=== PATIENT | female | born 1940 | race Caucasian/White ===

== ENCOUNTER 2020-09-13 15:03 | Inpatient (IN) | payer OTHER, MEDICAID, SELFPAY ==
[~2020-09-13] VITALS: Ht 144.8 cm; Wt 96.6 kg
[2020-09-13 15:05] VITALS: BP_SYST 141
--- NOTE | 2020-09-13 15:05 | NUR ---
Patient to ER bed 5 to gown for evaluation. Side rails up.
--- NOTE | 2020-09-13 15:05 | NUR ---
Arm sling applied to R upper extremity to support elbow injury.
--- NOTE | 2020-09-13 15:10 | NUR ---
ER Dr. Persaud at bedside examining patient.
--- NOTE | 2020-09-13 15:20 | NUR ---
Patient AAO x 4 BIB BLS with c/o 6/10 R elbow pain s/p ground level slip and fall outside apartment. Denies pain to other parts of body. Skin clean, dry, and intact. Patient reports being on blood thinners, but patient is unable to recall name of medication. Even chest rise and fall with respirations. Will continue to monitor.
[2020-09-13] MEDS ORDERED: LIP10 PO (15:31)
[2020-09-13] MEDS ORDERED: ESOM40CA PO (15:31)
[2020-09-13] MEDS ORDERED: CLOP75TA32 PO (15:31)
[2020-09-13] MEDS ORDERED: AMLO5TAB4 PO (15:31)
--- NOTE | 2020-09-13 15:38 | NUR ---
cardiac cath technologist at bedside for portable R elbow xray.
[2020-09-13] MEDS ORDERED: MORPHINE 2 MG/ML INJ. SYRINGE IVP ONE (16:00)
[2020-09-13] MEDS ORDERED: ONDANSETRON HCL 4 MG/2 ML VIAL IVP ONE (16:00)
--- NOTE | 2020-09-13 16:01 | NUR ---
rapid covid swab collected and sent to the lab
--- NOTE | 2020-09-13 16:02 | NUR ---
Medication reconciliation completed with information provided by pt. Any prior medication reconciliation on file was reviewed and corrected.
--- NOTE | 2020-09-13 16:42 | NUR ---
# 24 gauge angiocath placed to LEFT HAND. Use of asceptic technique. Opsite placed over site. Blood return noted. Blood for lab drawn from site. Flushed with 10 cc of normal saline. No evidence of infiltration noted. Patient tolerated well.
--- NOTE | 2020-09-13 16:42 | NUR ---
EKG GIVEN TO
[2020-09-13] MEDS ORDERED: DEXTROSE 50% JECT 50 ML DISP.SYRIN IVP PRN (16:45)
[2020-09-13] MEDS ORDERED: NALOXONE HCL 0.4 MG/ML AMP (NARCAN) IVP PRN ×2 (16:45)
[2020-09-13] MEDS ORDERED: INSULIN REGULAR, HUMAN 100 UNITS/ML, 10 ML VIAL (humuLIN R) SUBCUT PRN (16:45)
[2020-09-13] MEDS ORDERED: cloNIDine HCL 0.1 MG TABLET PO PRN (17:00)
--- NOTE | 2020-09-13 17:00 | NUR ---
LONG ARM splint applied to RUE. + pulse noted. Capillary refill <3 seconds. Patient has ability to move non-splinted digits. Has sensation present to affected site. Skin color within normal limits. Applied for pain management control.
--- NOTE | 2020-09-13 17:04 | NUR ---
ophthalmic medical technologist at bedside for portable chest and R forearm xrays.
[2020-09-13 17:10] LABS: BASOPHILS # (AUTO) 0.1 K/uL (0.0-0.2); BASOPHILS % (AUTO) 0.5 % (0.0-2.0); EOSINOPHILS # (AUTO) 0.1 K/uL (0.0-0.4); EOSINOPHILS % (AUTO) 0.3 % (0.0-4.0); HEMATOCRIT 41.5 % (36-48); HEMOGLOBIN 13.1 g/dL (12.0-16.0); LYMPHOCYTES # (AUTO) 2.3 K/uL (1.0-5.5); LYMPHOCYTES % (AUTO) 11.8 % (20.5-51.5); MEAN CORPUSCULAR HEMOGLOBIN 27 pg (27-31); MEAN CORPUSCULAR HGB CONC 32 % (32-36); MEAN CORPUSCULAR VOLUME 85 fL (79.0-98.0); MONOCYTES # (AUTO) 0.9 K/uL (0.0-1.0); MONOCYTES % (AUTO) 4.9 % (1.7-9.3); NEUTROPHILS % (AUTO) 82.5 % (40.0-70.0); PLATELET COUNT (AUTO) 346 K/uL (130-430); RED BLOOD CELL COUNT(AUTO) 4.91 MIL/uL (4.2-6.2); RED CELL DISTRIBUTION WIDTH 16.8 % (9.0-15.0); WHITE BLOOD COUNT (AUTO) 19.4 K/uL (4.8-10.8)
--- NOTE | 2020-09-13 17:10 | NUR ---
Per patient, last PO intake was ~1100 this AM.
--- NOTE | 2020-09-13 17:12 | NUR ---
Patient will be admitted to care of Dr. Richardson. Admitted to medical surgical unit. Will go to room 103A. Belongings list completed. Complete and up to date summary report printed. SBAR report to be given at bedside with opportunity for questions.
--- NOTE | 2020-09-13 17:23 | NUR ---
ADMISSION NOTE Received patient from ER via leon, received report from ALYSA RYAN. Patient admitted with diagnosis of RIGHT ELBOW FRACTURE. Patient oriented to hospital routine, call light, toileting and safety-patient verbalized understanding.
[2020-09-13 17:24] LABS: ANION GAP 5 (5-15); CALCIUM 8.7 mg/dL (8.4-11.0); CHLORIDE 103 mmol/L (98-107); CREATININE 0.87 mg/dL (0.55-1.30); GLUCOSE 135 mg/dL (70-99); POTASSIUM 4.5 mmol/L (3.5-5.1); SODIUM SERUM 137 mmol/L (136-145); UREA NITROGEN, BLOOD 18 mg/dL (8-21)
[2020-09-13 17:30] LABS: ALANINE AMINOTRANSFERASE 39 U/L (12-78); ALBUMIN 3.4 g/dL (3.4-4.8); ASPARTATE AMINOTRANSFERASE 33 U/L (10-37); TOTAL BILIRUBIN 0.4 mg/dL (0.0-1.0)
[2020-09-13 17:38] VITALS: BP_SYST 160
--- NOTE | 2020-09-13 17:39 | NUR ---
CONSULTATION PAGED/CALLED Reason for Consultation: elbow fracture Person Who was Notified: leigh Consulting Physician: simba anand Dye Machine Operator Specialty: Ordering Physician: dani tesfaye
--- NOTE | 2020-09-13 17:43 | NUR ---
CONSULTATION PAGED/CALLED Reason for Consultation: cardiac clearance Person Who was Notified:becca Consulting Physician: jason mcrae Hull Drafter Specialty: Ordering Physician: dani tesfaye
--- NOTE | 2020-09-13 19:00 | NUR ---
CALLED BACK AND NOTIFIED OF PT FX RIGHT ELBOW,HE SAID HE WILL SEE PT IN AM,ASSISTED PT TO BATHROOM AND URINATED IN TOILET,PT C/O SEVERE PAIN IN LEFT ARM,KEEP MOHAMUD WRAP DRESSING AND ARM SLING IN PLACE,GIVE NORCO 1 TAB PO PRN ORDER FOR PAIN.REPORT ENDORSED TO [facility] PILOT/NAVIGATOR/DDS OPERATOR STAFF.
--- NOTE | 2020-09-13 19:20 | NUR ---
Pt is resting comfortably in bed. Skin is warm and dry to touch. No signs or symptoms of hypoglycemia or hyperglycemia noted. Saline lock in LH is without any signs of infiltration. Right arm splint and sling with susi wrap dressing intact. Neurovascular checks to BUE are WNL. Fall and safety precautions are in place. Call light is with pt and bed alarm is on.
[2020-09-13 20:00] VITALS: BP_SYST 156
--- NOTE | 2020-09-13 20:30 | NUR ---
Pt assisted to bedside commode to urinate and back to bed.
[2020-09-13] MEDS: PANTOPRAZOLE SODIUM 40 MG TAB PO SCH (21:00)
[2020-09-13] MEDS: ATORVASTATIN 10 MG TABLET PO SCH (21:00)
--- NOTE | 2020-09-13 21:00 | NUR ---
Pt refused HS Lipitor and Protonix. Pt stated she already took Lipitor and Nexium at home prior to admission today.
--- NOTE | 2020-09-13 22:18 | NUR ---
Accucheck 157 and skin remains warm and dry to touch. Pt refused Regular Insulin coverage. Pt stated she will be alright without Insulin because she never took Insulin in her life. Pt declined HS snack.
--- NOTE | 2020-09-14 | NUR ---
No respiratory distress noted. Call light is with pt and bed alarm is on. Saline lock is intact in left hand.
[2020-09-14 00:33] VITALS: BP_SYST 140
[2020-09-14] MEDS: HYDROcodone/ACETAMIN 5-325 MG TAB (NORCO/ VICODIN) PO PRN ×3 (01:40→20:49)
--- NOTE | 2020-09-14 01:40 | NUR ---
[place] 5/325mg 1 tablet was given po for c/o 6/10 right wrist pain. Call light is with pt and bed alarm is on. Pt was instructed to call for assistance before getting out of bed and pt verbalized understanding.
--- NOTE | 2020-09-14 01:50 | NUR ---
Pt was assisted with using bedpan, followed by cony care. Pt voided clear yellowish urine in bedpan. Fall and safety precautions are in place.
--- NOTE | 2020-09-14 03:00 | NUR ---
Pt is sleeping without any distress noted. Fall and safety precautions are in place.
--- NOTE | 2020-09-14 04:30 | NUR ---
Pt is sleeping comfortably in bed. Saline lock is intact in LH. Fall and safety precautions are in place.
--- NOTE | 2020-09-14 06:30 | NUR ---
Pt is awake and resting quietly in bed. Accucheck 112 this AM and no Insulin coverage needed. Skin remains warm and dry to touch. Fall and safety precautions are in place. Will endorse to day shift nurse.
[2020-09-14 06:45] LABS: BASOPHILS # (AUTO) 0.1 K/uL (0.0-0.2); BASOPHILS % (AUTO) 0.5 % (0.0-2.0); EOSINOPHILS # (AUTO) 0.1 K/uL (0.0-0.4); EOSINOPHILS % (AUTO) 0.6 % (0.0-4.0); HEMATOCRIT 35.9 % (36-48); HEMOGLOBIN 11.6 g/dL (12.0-16.0); LYMPHOCYTES # (AUTO) 2.4 K/uL (1.0-5.5); LYMPHOCYTES % (AUTO) 22.1 % (20.5-51.5); MEAN CORPUSCULAR HEMOGLOBIN 27 pg (27-31); MEAN CORPUSCULAR HGB CONC 32 % (32-36); MEAN CORPUSCULAR VOLUME 82 fL (79.0-98.0); MONOCYTES # (AUTO) 0.7 K/uL (0.0-1.0); MONOCYTES % (AUTO) 5.9 % (1.7-9.3); NEUTROPHILS # (AUTO) 7.9 K/uL (1.8-7.7); NEUTROPHILS % (AUTO) 70.9 % (40.0-70.0); PLATELET COUNT (AUTO) 287 K/uL (130-430); RED BLOOD CELL COUNT(AUTO) 4.38 MIL/uL (4.2-6.2); RED CELL DISTRIBUTION WIDTH 16.5 % (9.0-15.0); WHITE BLOOD COUNT (AUTO) 11.1 K/uL (4.8-10.8)
[2020-09-14 07:00] LABS: ALANINE AMINOTRANSFERASE 33 U/L (12-78); ALBUMIN 2.9 g/dL (3.4-4.8); ANION GAP 6 (5-15); ASPARTATE AMINOTRANSFERASE 30 U/L (10-37); CALCIUM 8.3 mg/dL (8.4-11.0); CHLORIDE 99 mmol/L (98-107); CREATININE 0.69 mg/dL (0.55-1.30); GLUCOSE 111 mg/dL (70-99); POTASSIUM 3.9 mmol/L (3.5-5.1); SODIUM SERUM 134 mmol/L (136-145); TOTAL BILIRUBIN 0.7 mg/dL (0.0-1.0); UREA NITROGEN, BLOOD 16 mg/dL (8-21)
[2020-09-14 08:00] VITALS: BP_SYST 144
--- NOTE | 2020-09-14 08:00 | NUR ---
OPENING NOTES PATIENT AA0 X4. ABLE TO MAKE NEEDS KNOW. C/O ACHING, SHARP PAIN 6/10 TO RIGHT ARM. VS STABLE WILL CONTINUE TO MONITOR.
[2020-09-14] MEDS: amLODIPine BESYLATE 5 MG TABLET PO SCH (08:54)
[2020-09-14] MEDS: PANTOPRAZOLE SODIUM 40 MG TAB PO SCH ×2 (08:54→20:47)
--- NOTE | 2020-09-14 10:00 | NUR ---
TOLERATED BREAKFAST WELL. WILL CONTINUE TO MONITOR. PAIN 2/10, PATIENT DECLINES PAIN MEDICATION.
[2020-09-14 11:33] VITALS: BP_SYST 159
--- NOTE | 2020-09-14 12:00 | NUR ---
BLOOD SUGAR 94. PATIENT TOLERATED LUNCH WELL. WILL CONTINUE TO MONITOR.
--- NOTE | 2020-09-14 14:00 | NUR ---
ASSISTED PATIENT TO BED SIDE COMMODE AND BACK TO BED. TOLERATED FAIR. PATIENT ANXIOUS ABOUT GETTING OUT OF BED. WILL CONTINUE TO MONITOR PATIENT.
[2020-09-14] MEDS ORDERED: ASPI-1457 PO (14:26)
[2020-09-14] MEDS ORDERED: ICOS1CAP PO (14:26)
[2020-09-14] MEDS ORDERED: VITA1CAP PO (14:26)
[2020-09-14 15:32] VITALS: BP_SYST 139
--- NOTE | 2020-09-14 16:00 | NUR ---
PATIENT RECEIVED FOOD FROM HER DAUGHTER, AND LIST OF MEDICATIONS. EXPLAINED TO PATIENT THAT HER PLAVIX WAS HELD DUE TO PENDING SURGERY.
--- NOTE | 2020-09-14 18:00 | NUR ---
PATIENT RESTING IN BED
--- NOTE | 2020-09-14 19:30 | NUR ---
OPENING NOTES RECEIVED REPORT FROM DAY SHIFT RN. PT RESTING IN BED, ALERT & ORIENTED X4. BREATHING EVEN AND UNLABORED TO ROOM AIR. NO SIGNS OF RESPIRATORY DISTRESS NOTED. IV ON LEFT HAND 24G INTACT, NO SIGNS OF INFILTRATION NOTED. CALL LIGHT WITHIN REACH. SIDE RAILS UP X3. BED ALARM ON. SAFETY AND FALL PRECAUTIONS MAINTAINED. WILL CONTINUE TO MONITOR.
[2020-09-14 20:00] VITALS: BP_SYST 154
[2020-09-14] MEDS: ATORVASTATIN 10 MG TABLET PO SCH (20:47)
--- NOTE | 2020-09-14 20:47 | NUR ---
MEDICATION PASS SCHEDULED MEDICATIONS ADMINISTERED ORDERED. DISCUSSED MEDICATIONS ACTION AND POTENTIAL SIDE EFFECTS. PT VERBALIZED UNDERSTANDING. BLOOD SUGAR OF 115. NO INSULIN COVERAGE PER SLIDING SCALE AT THIS TIME. BREATHING EVEN AND UNLABORED TO ROOM AIR. CALL LIGHT WITHIN REACH. BED ALARM ON. SAFETY AND FALL PRECAUTIONS ARE IN PLACE. WILL MONITOR.
[2020-09-14 21:35] LABS: BILIRUBIN,URINE NEGATIVE (NEGATIVE); CLARITY/URINE SL CLOUDY (CLEAR); COLOR,URINE YELLOW (YELLOW); GLUCOSE,URINE NEGATIVE (NEGATIVE); KETONES,URINE TRACE (NEGATIVE); LEUKOCYTE ESTERASE ,URINE 1+ (NEGATIVE); NITRITE, URINE POSITIVE (NEGATIVE); PH,URINE 5.5 (5.0-8.0); PROTEIN URINE TRACE (NEGATIVE); UROBILINOGEN,URINE 0.2 (0.2-1.0)
[2020-09-14 21:57] LABS: BLOOD, URINE TRACE (NEGATIVE)
[2020-09-14 22:25] LABS: BACTERIA,URINE MANY /HPF (None Seen); RBC,URINE 0-3 /HPF (0-3); WBC,URINE 80-100 /HPF (0-3)
[2020-09-14 22:26] LABS: CALCIUM OXALATE CRYSTALS,UR 0-10 /HPF (None Seen); MUCUS,URINE 1+ /LPF (None Seen)
--- NOTE | 2020-09-14 23:15 | NUR ---
RN ROUNDS PT SLEEPING. CHEST RISE AND FALL SYMMETRICAL. PAIN IS CONTROLLED AT THIS TIME. NO S/S OF DISTRESS NOTED. CALL LIGHT WITHIN REACH. SIDE RAILS UP X3. BED ALARM ON, LOCKED IN LOWEST LEVEL. SAFETY AND FALL PRECAUTIONS MAINTAINED. WILL CONTINUE TO MONITOR.
[2020-09-15 00:14] VITALS: BP_SYST 157
--- NOTE | 2020-09-15 01:45 | NUR ---
RN ROUNDS PT SLEEPING. CHEST RISE AND FALL SYMMETRICAL. NO S/S OF DISTRESS NOTED. PAIN IS CONTROLLED. BED ALARM ON, LOCKED IN LOWEST POSITION. CALL LIGHT WITHIN REACH. SAFETY AND FALL PRECAUTIONS MAINTAINED. WILL CONTINUE TO MONITOR.
--- NOTE | 2020-09-15 06:35 | NUR ---
CLOSING NOTES PT RESTING IN BED. BREATHING EVEN AND UNLABORED TO ROOM AIR. NO SIGNS OF RESPIRATORY DISTRESS NOTED. PT REMAINS ON NPO. IV ON LEFT HAND 24G INTACT, NO SIGNS OF INFILTRATION NOTED. CALL LIGHT WITHIN REACH. SIDE RAILS UP X3. BED ALARM ON. SAFETY AND FALL PRECAUTIONS MAINTAINED. ALL NEEDS ARE MET THROUGHOUT SHIFT. WILL CONTINUE TO MONITOR UNTIL ENDORSE TO DAY SHIFT RN.
[2020-09-15 06:36] LABS: PROTHROMBIN TIME 10.5 SECS (9.5-12.5)
[2020-09-15 08:00] VITALS: BP_SYST 143
--- NOTE | 2020-09-15 08:00 | NUR ---
A/Ox4,vss,NPO for oncoming surgery of right elbow.susi wrap dressing in right arm with sling on dry and intact,needs attended,call light & personal items within pt reach,safety maintained continue to monitor pt.
[2020-09-15] MEDS: MORPHINE 2 MG/ML INJ. SYRINGE IVP PRN ×3 (10:30→22:45)
--- NOTE | 2020-09-15 10:30 | NUR ---
assisted pt get up and urinated in commode,pt c/o severe pain in right arm with movement give morphine 2 mg iv as prn order for pain.
[2020-09-15 11:33] VITALS: BP_SYST 143
--- NOTE | 2020-09-15 12:30 | NUR ---
To OR for ORIF of right elbow , alert/oriented x4 denies any pain.
[2020-09-15] MEDS ORDERED: LACTOBACILLUS RHAMNOSUS GG 1 CAP CAPSULE PO ONE (12:45)
[2020-09-15] MEDS ORDERED: CLINDAMYCIN 900 MG in D5W 100 ML IV ONE (13:00)
[2020-09-15] MEDS ORDERED: POLYMYXIN 500,000/BACIT.10,000 UNITS in NS IRR 1 L IR ONE (13:30)
--- NOTE | 2020-09-15 14:17 | NUR ---
Dietitian Recommendations * Consider advance to [facility], cardiac diet w/ Yuan BID if/when medically appropriate LP, RD Please refer to Nutrition Assessment for details. Addendum: 09/15/20 at [address] Amended: Links added.
[2020-09-15] MEDS ORDERED: ONDANSETRON HCL 4 MG/2 ML VIAL IVP PRN (16:15)
[2020-09-15] MEDS ORDERED: HYDROmorphone 1 MG INJ. 1 MG/ML AMPUL IVP PRN ×2 (16:15)
[2020-09-15] MEDS ORDERED: LR 1,000 ML IV SCH (16:15)
[2020-09-15] MEDS ORDERED: METOCLOPRAMIDE HCL 10 MG/2 ML VIAL ONE (16:18)
[2020-09-15] MEDS ORDERED: MIDAZOLAM HCL 5 MG/ML VIAL (VERSED) IV ONE (16:18)
[2020-09-15] MEDS ORDERED: GLYCOPYRROLATE 0.2 MG/ML VIAL ONE (16:18)
[2020-09-15] MEDS ORDERED: PROPOFOL 200MG/ 20ML VIAL (DIPRIVAN) IV ONE (16:18)
[2020-09-15] MEDS ORDERED: ONDANSETRON HCL 4 MG/2 ML VIAL ONE (16:18)
[2020-09-15] MEDS ORDERED: fentaNYL CITRATE 250 MCG/5 ML AMP ONE (16:18)
[2020-09-15] MEDS ORDERED: LIDOCAINE 1% 10 MG/ML, 20 ML MDV ONE (16:18)
[2020-09-15] MEDS ORDERED: LR 1,000 ML IV.SOLN IV ONE (16:18)
[2020-09-15] MEDS ORDERED: SEVOFLURANE 15 MIN GAS INH ONE (16:18)
[2020-09-15] MEDS ORDERED: hydrALAZINE HCL 20 MG/ML VIAL IVP PRN (16:30)
[2020-09-15] MEDS ORDERED: HYDROmorphone 1 MG INJ. 1 MG/ML AMPUL ONE (16:45)
[2020-09-15 17:15] VITALS: BP_SYST 179
[2020-09-15 17:19] VITALS: BP_SYST 196
--- NOTE | 2020-09-15 17:20 | NUR ---
received pt back from surgery,sleepy,arousible,A/Ox4,wearing right arm sling susi wrap dressing dry and intact,right hand color piink,refill normal,able to move right fingers on command,BP elevated 179/65,resumed previous HTN meds per order continue IVF infusion,needs attended,safety maintained.
[2020-09-15] MEDS: PANTOPRAZOLE SODIUM 40 MG TAB PO SCH ×2 (17:30→21:35)
[2020-09-15] MEDS: amLODIPine BESYLATE 5 MG TABLET PO SCH (17:31)
[2020-09-15] MEDS: LEVOFLOXACIN 500 MG/D5W 100 ML IV SCH (17:31)
--- NOTE | 2020-09-15 18:41 | NUR ---
pt continue sleeping in bed,BP decreased to 165/69,puse 77,O2 sat 95% on 3L/NC,c/o pain again,give morphine 2 mg IV as prn order for pain.continue to monitor pt.
--- NOTE | 2020-09-15 19:30 | NUR ---
OPENING NOTES Received patient from morning shift nurse, had had an ORIF for the Right elbow. Post-op vitals to be completed. IV site patent, dressings c/d/i, IVF running. Right arm in a sling, patient able to move fingers and feel touch. Patient had received PRN pain medication at around 1800. Call light within reach, bed alarm on, bed at lowest position. Will continue to monitor.
[2020-09-15] MEDS: LACTOBACILLUS RHAMNOSUS GG 1 CAP CAPSULE PO SCH (21:34)
[2020-09-15] MEDS: ATORVASTATIN 10 MG TABLET PO SCH (21:34)
[2020-09-15] MEDS: CLINDAMYCIN 900 MG in D5W 100 ML IV SCH (21:40)
--- NOTE | 2020-09-15 21:40 | NUR ---
BLOOD SUGAR 125, PO MEDICATIONS Patient resting, no signs of respiratory distress noted. Warm tea, Jello provided to patient. No coverage needed for blood sugar of 125. Call light within reach. Will continue to monitor.
--- NOTE | 2020-09-15 22:16 | NUR ---
BEDPAN PROVIDED, patient able to help. No signs of distress noted. Warm blankets also provided. Will continue to monitor.
--- NOTE | 2020-09-16 | NUR ---
Patient is resting, eyes closed. No signs of respiratory distress noted, 3L NC. Call light within reach, bed alarm on, bed at lowest position. Will continue to monitor.
[2020-09-16 00:37] VITALS: BP_SYST 111
[2020-09-16] MEDS: HYDROcodone/ACETAMIN 5-325 MG TAB (NORCO/ VICODIN) PO PRN ×5 (01:10→21:34)
[2020-09-16] MEDS: CLINDAMYCIN 900 MG in D5W 100 ML IV SCH (04:25)
--- NOTE | 2020-09-16 04:52 | NUR ---
Patient is resting, no signs of distress noted. Call light within reach, bed alarm on, bed at lowest position. Will continue to monitor.
--- NOTE | 2020-09-16 06:40 | NUR ---
CLOSING NOTES Patient is resting in bed, no signs of acute respiratory distress noted, 3L NC. Breathing even and unlabored. IV site patent and intact, infusing fluids. Patient able to wiggle fingers and feel touch in the right hand. All needs met throughout shift. Call light within reach, bed alarm on, bed at lowest position. Safety precautions in place, SCDs on. Will endorse care to oncoming shift.
[2020-09-16 07:41] LABS: BASOPHILS % (AUTO) 0.2 % (0.0-2.0); EOSINOPHILS % (AUTO) 0.1 % (0.0-4.0); HEMATOCRIT 33.4 % (36-48); HEMOGLOBIN 10.9 g/dL (12.0-16.0); LYMPHOCYTES # (AUTO) 1.5 K/uL (1.0-5.5); LYMPHOCYTES % (AUTO) 12.6 % (20.5-51.5); MEAN CORPUSCULAR HEMOGLOBIN 27 pg (27-31); MEAN CORPUSCULAR HGB CONC 33 % (32-36); MEAN CORPUSCULAR VOLUME 82 fL (79.0-98.0); MONOCYTES # (AUTO) 1.6 K/uL (0.0-1.0); MONOCYTES % (AUTO) 13.3 % (1.7-9.3); NEUTROPHILS # (AUTO) 8.6 K/uL (1.8-7.7); NEUTROPHILS % (AUTO) 73.8 % (40.0-70.0); PLATELET COUNT (AUTO) 295 K/uL (130-430); RED BLOOD CELL COUNT(AUTO) 4.07 MIL/uL (4.2-6.2); WHITE BLOOD COUNT (AUTO) 11.7 K/uL (4.8-10.8)
[2020-09-16 08:00] VITALS: BP_SYST 135
--- NOTE | 2020-09-16 08:00 | NUR ---
A/Ox4,vss,on o2 2L/NC,sat 93%,dressing in right arm with arm sling on dry and intact,neurovascular check wnl. needs attended,call light & personal items within pt reach,safety maintained.
[2020-09-16 08:08] LABS: CHLORIDE 97 mmol/L (98-107); POTASSIUM 3.6 mmol/L (3.5-5.1); SODIUM SERUM 132 mmol/L (136-145)
[2020-09-16 08:09] LABS: ANION GAP 5 (5-15); CALCIUM 8.1 mg/dL (8.4-11.0); GLUCOSE 121 mg/dL (70-99)
[2020-09-16 08:10] LABS: CREATININE 0.65 mg/dL (0.55-1.30); UREA NITROGEN, BLOOD 11 mg/dL (8-21)
[2020-09-16] MEDS: LACTOBACILLUS RHAMNOSUS GG 1 CAP CAPSULE PO SCH ×2 (09:57→21:27)
[2020-09-16] MEDS: amLODIPine BESYLATE 5 MG TABLET PO SCH (09:57)
[2020-09-16] MEDS: PANTOPRAZOLE SODIUM 40 MG TAB PO SCH ×2 (09:58→21:27)
--- NOTE | 2020-09-16 10:00 | NUR ---
give am meds due,pt is compliant of meds and tolerated well.
--- NOTE | 2020-09-16 11:00 | NUR ---
c/o severe pain in right arm,give norco 10/325mg 1 tab po as prn order for pain.elevated RUE with pillow repositioned for comfort. Addendum: 09/16/20 at 1933 by Five oil field technician correction for norco pita [id number] instead of [id number]
[2020-09-16 11:25] VITALS: BP_SYST 121
--- NOTE | 2020-09-16 12:00 | NUR ---
pt resting well in bed,blood sugar before lunch 147 mg/dl,no signs of hypo or hyperglycemia noted.
[2020-09-16] MEDS: LEVOFLOXACIN 500 MG/D5W 100 ML IV SCH (13:43)
--- NOTE | 2020-09-16 14:00 | NUR ---
give IV levaquin due for UTI,no adverse reactions noted.IV site in left hand remains patent and intact.
[2020-09-16] MEDS ORDERED: ONDANSETRON HCL 4 MG/2 ML VIAL IVP PRN (15:15)
[2020-09-16 15:31] VITALS: BP_SYST 109
--- NOTE | 2020-09-16 16:00 | NUR ---
pt seen by PT and c/o pain again right arm,give norco 1 tab po again as prn order for pain.
--- NOTE | 2020-09-16 16:11 | NUR ---
Discharge Planning: DCP faxed pt referral to [facility] ([phone]) DCP to follow up
--- NOTE | 2020-09-16 18:00 | NUR ---
pt resting in bed and said she 's nauseated,but refused prn meds for nausea.encouraged oral fluid intake needs attended,hourly rounds made,safety maintained.
--- NOTE | 2020-09-16 19:10 | NUR ---
Report received from day shift nurse. Pt was received lying in bed fully awake, alert and oriented x4. Skin is warm and dry to touch. No signs or symptoms of hypoglycemia or hyperglycemia noted. Saline lock in LH is without any signs of infiltration. Right arm splint and sling with susi wrap dressing noted and Neurovascular checks to BUE are WNL. Fall and safety precautions are in place. Call light is with pt and bed alarm is on.
[2020-09-16 20:00] VITALS: BP_SYST 149
[2020-09-16] MEDS: ATORVASTATIN 10 MG TABLET PO SCH (21:27)
--- NOTE | 2020-09-16 21:28 | NUR ---
Accucheck 122 and no Insulin coverage needed. Skin remains warm and dry to touch. Pt ate 2 cups Sugar free Jello for HS snacks. Call light is with pt and bed alarm is on.
--- NOTE | 2020-09-16 21:34 | NUR ---
[place] 5/325mg 1 tablet was given po per pt's request for c/o 6/10 right elbow pain. Call light is with pt and bed alarm is on. Pt was instructed to call for assistance before getting out of bed and pt verbalized understanding.
--- NOTE | 2020-09-16 23:00 | NUR ---
No c/o pain or discomfort at this time. Fall and safety precautions are in place.
[2020-09-17 00:29] VITALS: BP_SYST 122
--- NOTE | 2020-09-17 01:00 | NUR ---
Resting quietly in bed. Fall and safety precautions are in place.
--- NOTE | 2020-09-17 03:00 | NUR ---
No distress noted at this time. Call light is with pt and bed alarm is on.
--- NOTE | 2020-09-17 05:00 | NUR ---
Pt is sleeping without any distress noted. Fall and safety precautions are in place.
[2020-09-17 06:12] LABS: BASOPHILS % (AUTO) 0.4 % (0.0-2.0); EOSINOPHILS # (AUTO) 0.1 K/uL (0.0-0.4); EOSINOPHILS % (AUTO) 0.8 % (0.0-4.0); HEMATOCRIT 31.1 % (36-48); HEMOGLOBIN 10.2 g/dL (12.0-16.0); LYMPHOCYTES # (AUTO) 1.8 K/uL (1.0-5.5); MEAN CORPUSCULAR HEMOGLOBIN 27 pg (27-31); MEAN CORPUSCULAR HGB CONC 33 % (32-36); MEAN CORPUSCULAR VOLUME 83 fL (79.0-98.0); MONOCYTES # (AUTO) 1.2 K/uL (0.0-1.0); MONOCYTES % (AUTO) 11.1 % (1.7-9.3); NEUTROPHILS # (AUTO) 7.5 K/uL (1.8-7.7); NEUTROPHILS % (AUTO) 70.7 % (40.0-70.0); PLATELET COUNT (AUTO) 275 K/uL (130-430); RED BLOOD CELL COUNT(AUTO) 3.75 MIL/uL (4.2-6.2); RED CELL DISTRIBUTION WIDTH 15.7 % (9.0-15.0); WHITE BLOOD COUNT (AUTO) 10.6 K/uL (4.8-10.8)
[2020-09-17] MEDS: HYDROcodone/ACETAMIN 5-325 MG TAB (NORCO/ VICODIN) PO PRN ×2 (06:29→11:24)
--- NOTE | 2020-09-17 06:29 | NUR ---
[place] 5/325mg 1 tablet was given po per pt's request for c/o 610 right elbow pain. Neurovascular checks are WNL. Call light is with pt and bed alarm is on. Pt was instructed to call for assistance before getting out of bed and pt verbalized understanding.
[2020-09-17 06:46] LABS: ANION GAP 6 (5-15); CALCIUM 8.1 mg/dL (8.4-11.0); CHLORIDE 97 mmol/L (98-107); CREATININE 0.64 mg/dL (0.55-1.30); GLUCOSE 123 mg/dL (70-99); POTASSIUM 3.8 mmol/L (3.5-5.1); SODIUM SERUM 133 mmol/L (136-145); UREA NITROGEN, BLOOD 9 mg/dL (8-21)
--- NOTE | 2020-09-17 06:59 | NUR ---
Pt is awake and resting comfortably in bed. Saline lock is intact in LH. Fall and safety precautions are in place. Will endorse to day shift nurse.
[2020-09-17 08:00] VITALS: BP_SYST 139
--- NOTE | 2020-09-17 08:00 | NUR ---
initial notes rec patient awake laert with hob elevated. ivl in place/ no infiltration noted. resp easy and unlabored. no osb noted. bed to the lowest positon and side rails up and locked. call light withn reached . r hay with a slinf and fingers moving freely . no neuro deficit noted. will continue to monitor patient.
[2020-09-17] MEDS: PANTOPRAZOLE SODIUM 40 MG TAB PO SCH (08:43)
[2020-09-17] MEDS: LACTOBACILLUS RHAMNOSUS GG 1 CAP CAPSULE PO SCH (08:43)
[2020-09-17] MEDS: amLODIPine BESYLATE 5 MG TABLET PO SCH (08:45)
--- NOTE | 2020-09-17 08:49 | NUR ---
rounds assisted to the bedside commode to have bm. instructed to call when needing assiatnce. call light within reached.
--- NOTE | 2020-09-17 09:17 | NUR ---
Discharge Planning: DCP followed up with pt referral to [facility] ([phone]) pt accepted DCP made CM aware.
--- NOTE | 2020-09-17 11:27 | NUR ---
rounds medicated with norco as ordered. no hypo hyperglycemic reaction noted. sleeps at intervals.
--- NOTE | 2020-09-17 11:50 | NUR ---
rounds assisted to the bathroom and ayse well . stated will have a bm at thisitme.
[2020-09-17 12:13] VITALS: BP_SYST 159
[2020-09-17] MEDS ORDERED: LEVO500T89 PO (12:23)
[2020-09-17] MEDS ORDERED: VITD2000 PO (12:24)
[2020-09-17] MEDS ORDERED: LACT1CAP57 PO (12:24)
[2020-09-17 13:31] VITALS: BP_SYST 159
--- NOTE | 2020-09-17 16:00 | NUR ---
closing notes daughter came and picked up patient . id band and ivl was removed. instructed re medication reconciliation and new meds to start as per dr tesfaye. also instructed re appt with pmd and home health to follow patient. stable and needs attended. was wheeled via wheelchair and ayse well. no sob noted. needs attended. arm sling in place. no neuro deficit noted.
[2020-09-17 16:18] VITALS: BP_SYST 155
--- NOTE | 2020-09-22 12:00 | NUR ---
Discharge Follow Up Call: [employer] phoned pt @ [phone]. Pt is "doing good" and pt does not have any questions/concerns about the discharge instructions. Pt states she has an appointment with her PCP on 09/24 and she has finished her antibiotics but is still taking her vitamins as directed. Pt also stated initial HH visit was made on 09/18 but has not received follow up visits, but may be due to the fact that she is not answering calls thinking they are unwanted calls/scam calls. [employer] phoned [facility] informing them to leave a message and left SS phone number.
== END 2020-09-17 15:55 | disposition home health service (06) | DRG 511 ==
LOC: SED 15:03 → SMU 16:14
PROVIDERS: ADMIT Internal Medicine; ATTEND Internal Medicine
PROC: 0PBH0ZZ Excision of Right Radius, Open Approach (ICD-10-PCS; 2020-09-15)
PROC: 0PSK04Z Reposition Right Ulna with Internal Fixation Device, Open Approach (ICD-10-PCS; principal; 2020-09-15 12:41)
DX: S52.021A Displaced fracture of olecranon process without intraarticular extension of right ulna, initial encounter for closed fracture (principal); E44.1 Mild protein-calorie malnutrition; Z68.42 Body mass index [BMI] 45.0-49.9, adult; E66.9 Obesity, unspecified; I10 Essential (primary) hypertension; E78.5 Hyperlipidemia, unspecified; K59.09 Other constipation; R73.03 Prediabetes; S52.131A Displaced fracture of neck of right radius, initial encounter for closed fracture; W19.XXXA Unspecified fall, initial encounter; Z20.828 Contact with and (suspected) exposure to other viral communicable diseases; Y92.89 Other specified places as the place of occurrence of the external cause; Y93.89 Activity, other specified; Y99.8 Other external cause status; Z86.73 Personal history of transient ischemic attack (TIA), and cerebral infarction without residual deficits; Z87.891 Personal history of nicotine dependence; Z90.12 Acquired absence of left breast and nipple; Z90.49 Acquired absence of other specified parts of digestive tract; Z92.21 Personal history of antineoplastic chemotherapy; Z88.0 Allergy status to penicillin
CPT/HCPCS: 36415; 71045; 73090; 76000; 80048; 80053; 81000-TC; 82550-TC; 82962; 84439; 85025; 85610-TC; 85730-TC; 86886; 86900; 86901; 87081; 87086; 88305; 88311; 93005; 94760; 96374; 96375; 97110-GP; 97116-GP; 97163; 97530-GP; 99285; C1713; J1170; J1815; J1956; J2001; J2250; J2270; J2405; J2704; J2765; J3010; J3490; J7060; J7120; Q4112